=== PATIENT | female | born 1960 | race African-American/Black ===

== ENCOUNTER → 2017-09-10 | Day surgery (SDC) | payer OTHER ==
[~2017-09-10] MED LIST: LIDOCAINE 2% PF Vial for OR 5 ML VIAL.; PROPOFOL 40 ML IV
[2017-09-10] MEDS: IV RINGERS,LACTATED 1000ML 1,000 ML IV (11:50)
== END | disposition home or self-care (01) ==
LOC: SURG 11:11
DX: Z12.11 Encounter for screening for malignant neoplasm of colon (principal); K57.30 Diverticulosis of large intestine without perforation or abscess without bleeding; I10 Essential (primary) hypertension; M06.9 Rheumatoid arthritis, unspecified; Z90.710 Acquired absence of both cervix and uterus; Z98.890 Other specified postprocedural states; Z86.010 Personal history of colon polyps
CPT/HCPCS: 45378; J2001; J2704

== ENCOUNTER → 2020-09-12 | Outpatient (CLI) | payer OTHER ==
[2017-09-10 13:31] VITALS: BP 140/82
[~2020-09-12] MED LIST changes: +AMLO10TA4 PO; +ERGO500027 PO; +HYDR200T71 PO; -LIDOCAINE 2% PF Vial for OR 5 ML VIAL.; -PROPOFOL 40 ML IV
--- NOTE | 2020-09-13 10:48 | KCIC ---
XR HAND 3 VIEWS History: Reason: Polyarthralgia / Spl. Instructions: / History: Technique: 3 views bilateral hands Comparison: March 15, 2015 wrist radiographs bilaterally Findings: Right hand: Moderate first carpometacarpal DJD. No dislocation. No acute fracture. Chronic fragmented ossification adjacent to the first interphalangeal joint. Mild distal phalangeal degenerative change s. Left hand: Mild first carpometacarpal DJD. No dislocation. No fracture. The degenerative findings are progressed compared to 2016. Impression: 1. Polyarticular DJD, right greater than left. Electronically signed by: Renard Damico DO (09/13/2020 10:46 AM) [id number]
--- NOTE | 2020-09-13 10:57 | KCIC ---
XR BILAT FEET 3 VIEWS History: Reason: Polyarthralgia / Spl. Instructions: / History: Technique: 3 views bilateral feet. Comparison: None. Findings: Right foot: Normal alignment. No fracture. Plantar calcaneal spur. Dorsal calcaneal enthesophytes. Ch ronic ossific fragment adjacent to the first metatarsophalangeal joint, may relate to degenerative ch anges or prior trauma. Left foot: Normal alignment. No fracture. Plantar calcaneal spur. Dorsal calcaneal enthesophytes. Impression: 1. No acute osseous abnormality. 2. Plantar calcaneal spurs. Electronically signed by: Renard Damico DO (09/13/2020 10:54 AM) [id number]
== END ==
LOC: KCIC 08:48
PROVIDERS: ATTEND Internal Medicine Rheumatology
DX: M18.0 Bilateral primary osteoarthritis of first carpometacarpal joints (principal); M77.32 Calcaneal spur, left foot; M77.31 Calcaneal spur, right foot
CPT/HCPCS: 73130-50; 73630-50